=== PATIENT | male | born 1975 | race Caucasian/White ===

== ENCOUNTER 2019-10-01 20:47 | Inpatient (IN) ==
[2019-10-01 21:27] LABS: URINE SOURCE CLEAN CATCH
[2019-10-01 21:31] LABS: BASO# 0.02 X1000 (0.0-0.2); BASO% 0.2 % (0.0-0.8); EOS# 0.04 X1000 (0.0-0.7); EOS% 0.5 % (0.0-10.0); HEMATOCRIT 44.7 % (42.0-52.0); HEMOGLOBIN 15.2 g/dL (14.0-18.0); IMM GRAN# 0.03 X1000 (0.0-0.04); IMM GRAN% 0.4 % (0.0-0.5); LYMPH# 1.18 X1000 (1.2-3.4); LYMPH% 13.9 % (20.5-51.1); MCH 28.1 PG (27-31); MCV 82.6 FL (81-99); MONO# 0.45 X1000 (0.11-0.59); MONO% 5.3 % (1.7-9.3); NEUT# 6.78 X1000 (1.4-6.5); NEUT% 79.7 % (42.2-75.2); PLT 166 X1000 (130-400); RBC 5.41 XMIL (4.7-6.1); RDW 13.6 % (11.5-14.5)
[2019-10-01 21:33] LABS: BE -0.2 mmoll (-2.0-2.0); BLOOD TYPE VENOUS; HCO3-(ACT) 24.7 mmoll (22-27); PCO2(98.6) 41 mmHg (40-60); PO2(98.6) 76 mmHg (30-55); SAMPLE BLOOD; SAO2 97.4 % (40.0-85.0); pH(98.6) 7.39 (7.32-7.43)
[2019-10-01 21:35] LABS: BILIRUBIN URINE NEGATIVE (NEGATIVE); BLOOD URINE NEGATIVE (NEGATIVE); COLOR YELLOW; GLUCOSE URINE >1000 mg/dL (NEGATIVE); KETONE URINE TRACE mg/dL (NEGATIVE); LEUKOCYTES URINE NEGATIVE (NEGATIVE); NITRITE URINE NEGATIVE (NEGATIVE); PROTEIN URINE TRACE mg/dL (NEGATIVE); SP GRAVITY URINE 1.034; TURBIDITY URINE CLEAR (CLEAR); UROBILINOGEN URINE NORMAL (NORMAL)
[2019-10-01 21:37] LABS: UR EPITHELIAL CELLS <10 /HPF (<10); URINE BACTERIA NEGATIVE /HPF; URINE RBC <10 /HPF (<10); URINE WBC <10 /HPF (<10)
[2019-10-01 21:40] LABS: ACETONE SERUM NEGATIVE (NEGATIVE)
[2019-10-01 21:51] LABS: AGAP 15; ALB/GLOB RATIO 2.2; ALBUMIN 4.4 g/dL (3.5-5.0); ALKALINE PHOSPHATASE 88 U/L (32-122); AMYLASE 28 U/L (20-200); BUN 14 mg/dL (8-22); CALCIUM 9.6 mg/dL (8.8-10.2); CHLORIDE 98 mmol/L (98-107); CK PROFILE 114 U/L (24-204); COSMO 287; CREATININE 0.8 mg/dL (0.7-1.2); ESTIMATED GFR > 60; GLUCOSE 291 mg/dL (70-104); GOT 13 U/L (10-34); GPT 25 U/L (10-44); LIPASE 15 U/L (13-60); POTASSIUM 4.3 mmol/L (3.5-5.1); SODIUM 138 mmol/L (136-145); TCO2 25 mmol/L (25-35); TOTAL BILIRUBIN 0.44 mg/dL (0.20-1.00); TOTAL PROTEIN 6.4 g/dL (6.3-8.3)
[2019-10-01] MEDS ORDERED: G.I. COCKTAIL PO ONE (22:13)
[2019-10-01] MEDS ORDERED: PROTONIX PO ONE (22:13)
[2019-10-01] MEDS ORDERED: NS 1,000 ML IV ONE (22:17)
[2019-10-01] MEDS ORDERED: ZOFRAN IV ONE (23:42)
[2019-10-01] MEDS ORDERED: MORPHINE IV ONE (23:42)
--- NOTE | 2019-10-01 23:57 | EKG Report ---
Test Performed on : 10/01/2019 10:26:00 PM Test Reason : diabetic, epigastric pain Blood Pressure : / mmHG Vent. Rate : 062 BPM Atrial Rate : 062 BPM P-R Int : 142 ms QRS Dur : 086 ms QT Int : 402 ms P-R-T Axes : 022 049 039 degrees QTc Int : 408 ms Normal sinus rhythm. Normal ECG No previous ECGs available Unconfirmed Result
--- NOTE | 2019-10-02 01:33 | PROVIDER DOCUMENTATION ---
This chart was entered by Chyna Moralez Scribe, acting as scribe for Hang Schwarz MD. HPI-General Adult - General Chief Complaint: Abdominal Pain Stated Complaint: Epigastric Pain Time Seen by Provider: 10/01/19 21:25 Source: patient Allergies/Adverse Reactions: Patient Allergies Allergy/AdvReac Type Severity Reaction Status Date / Time No Known Allergies Allergy Verified 10/01/19 21:07 - History of Present Illness -Gen Adult Nature of Presenting Problems: 44yom presents to ED cc epigastric pain that is dull but gets sharp when he lays down and some nausea. Pt denies V/F/CP. Pt reports he has DM but has had no meds in 1yr. Pt is nontoxic in appearance upon exam. Location of Pain/Injury: reports: abdomen (epigastric) Pain Radiation: reports: no radiation Quality of Pain: reports: dull, sharp Severity: reports: mild Onset/Duration: reports: this morning Timing: reports: still present Context/Activities at Onset: reports: light activity Modifying Factors: worse with: lying down Associated Symptoms: reports: nausea Similar Symptoms Previously?: No Recently seen or treated by another doctor?: No Review of Systems - Adult - REVIEW OF SYSTEMS - ADULT Constitutional: reports: see HPI. denies: chills, fever, fatique Eyes: reports: no symptoms reported Ears, Nose, Mouth & Throat: reports: no symptoms reported Cardiovascular: reports: see HPI. denies: chest pain Respiratory: reports: no symptoms reported Gastrointestinal: reports: see HPI, abdominal pain (epigastric), nausea. denies: diarrhea, vomiting Genitourinary: reports: no symptoms reported Musculoskeletal: reports: no symptoms reported Integumentary: reports: no symptoms reported Neurological: reports: no symptoms reported Psychiatric: reports: no symptoms reported Endocrine: reports: no symptoms reported Hematologic/Lymphatic: reports: no symptoms reported Allergic/Immunologic: reports: no symptoms reported All Other Systems: Reviewed and Negative Past History - Adult - PAST MEDICAL HISTORY-ADULT Review of Records: reports: Nursing Assessment Review, Medications Reviewed, Social history reviewed & non-contributory. Major Childhood Illnesses: reports: denies history Cardiovascular: reports: denies history Respiratory: reports: denies history Gastrointestinal: reports: denies history Obstetrical/Gynecological: reports: denies history Genitourinary: reports: denies history Musculoskeletal: reports: denies history Neurological: reports: denies history Endocrine/Immune: reports: denies history Other Conditions: reports: denies history - IMMUNIZATION STATUS Childhood Immunizations: See Nurse Assessment Flu Vaccine: See Nurse Assessment - FAMILY HISTORY Family History: reviewed, not pertinent - SOCIAL HISTORY Smoking: denies Substance Use: none/never Alcohol Use Frequency: never Physical Exam-General - PHYSICAL EXAM-ADULT Initial Vital Signs Reviewed: Yes - CONSTITUTIONAL General Appearance: appears well, alert, no apparent distress. negative: anxious, combative - EYES Eyes: PERRL/EOMI, pink conjunctivae. negative: photophobia - HEAD, EARS, NOSE, MOUTH & THROAT HENMT: normocephalic/atraumatic, moist mucous membranes. negative: angioedema - NECK Neck: normal inspection - RESPIRATORY Respiratory: chest non-tender, lungs clear, normal breath sounds. negative: rhonchi, stridor - CARDIOVASCULAR Cardiovascular: normal peripheral pulses, regular rate, rhythm, no edema. negative: bradycardia, tachycardia - GASTROINTESTINAL (ABDOMEN) Abdominal Exam: normal bowel sounds, soft, no organomegaly, tenderness (mild;epigastric). negative: rebound - MUSCULOSKELETAL Back Exam: normal inspection, no CVA tenderness, no vertebral tenderness Extremity: normal inspection, normal capillary refill. negative: deformity - SKIN Integumentary: normal color. negative: diaphoresis, jaundice - PSYCHIATRIC Psych/Mental Status: normal mood/affect, oriented x 3. negative: anxious, disheveled Progress - PLAN OF CARE/RESULTS Progress/Plan/Lab Results: Vital Signs - 8 hr 10/01/19 20:54 Temperature 98.1 F Pulse Rate 66 Respiratory Rate 18 Blood Pressure 157/99 O2 Sat by Pulse Oximetry 95 Laboratory Results - last 24 hr 10/01/19 21:07 POC Glucose 251 H Orders Category Date Time Status Saline Loc DIRECTED Care 10/01/19 21:06 Active NPO Diet 10/01/19 21:06 Active ACETONE SERUM [CHEM] Stat Lab 10/01/19 20:56 Received AMYLASE [CHEM] Stat Lab 10/01/19 20:56 Received CBC WITH ELECTRONIC DIFF [HEME] Stat Lab 10/01/19 20:56 Results CK PROFILE [SP CHEM] Stat Lab 10/01/19 20:56 Received COMPREHENSIVE METABOLIC PANEL [CHEM] Stat Lab 10/01/19 20:56 Received LIPASE [CHEM] Stat Lab 10/01/19 20:56 Received TROPONIN T Stat Lab 10/01/19 20:56 Received URINALYSIS W/POSS RFLX CULT [URINALYSIS] Stat Lab 10/01/19 21:23 Ordered VBG [VENOUS BLOOD GAS] [RESP] Routine Lab 10/01/19 21:10 Ordered EKG [EKG] Stat Ther 10/01/19 21:06 Ordered Result Diagrams: 10/01/19 20:56 10/01/19 20:56 - REASSESSMENT Reassessment #1 Time Reassessed: 22:15 Status: unchanged (still epigastric pain, labs has been unremarkable besides elevated glucose. Will give GI cocktail, protonix . Order 2nd EKG and trops) Reassessment #2 Time Reassessed: 23:44 Status: worsening (reports worsening of epigastric pain after GI cocktail and protonix. Will treat with morphine, zofran and order a CT) - EKG 1 Time of EKG reading by physician:: 22:28 EKG Read and Signed by:: Albaro Sanchez EKG Interpretation (*Must complete 3 of following elements*): Normal Rate: 60 Rhythm: NSR QRS: normal ST Wave: normal - CT/MRI 1 CT Study: Abdomen Impression: See EMR Report (1.Small bowel obstruction with transition point suspected in the mid to distal jejunum. 2.No ascites or free air.) - CONSULTS/PCP/HOSPITALIST Notification #1 *Consult/PCP/Hospitalist*: Dr. Tamez Time Discussed: 00:55 Consult Disposition: other (will see after pt is admitted by hospitalist) #2 Consult: Dr. Thakur Time Discussed: 00:57 Consult Disposition: Admit (accepted pt) Departure - Departure Date of Disposition Decision: 10/01/19 Time of Disposition Decision: 23:40 DIAGNOSIS: Small bowel obstruction Diabetes Qualifiers: Diabetes mellitus type: type 2 Diabetes mellitus usp insulin use: without usp use Diabetes mellitus complication status: with hyperglycemia Qualified Code(s): E11.65 - Type 2 diabetes mellitus with hyperglycemia DIAGNOSIS: (Ruled Out): GERD (gastroesophageal reflux disease) Disposition: ADMITTED INPATIENT 09 Certified Medical Emergency: Emergent Condition: Stable Additional Instructions: ED Follow Up Instructions: You have been treated by a care provider in the Emergency Department. These instructions are being provided to you so you can have an understanding of how to care for yourself upon discharge. Upon discharge from the Emergency De partment, you are responsible for making arrangements for follow-up care by a physician of your choice. Take all prescribed medications as directed. Return to the Emergency Department immediately for any new or worsening symptoms. You may call the Physician Referral phone number at [phone] to obtain a list of Physicians who are taking new patients. Referrals and Follow-Ups: None,PCP [Primary Care Provider] - - Critical Care Note This patient required my direct & personal management of CC.: No Attestation - Physician/ ДМИТРИЙ Attestation Patient care was provided by Advanced Practice Provider:: No The physician spent face to face time with patient:: Yes Advanced Practice Provider documentation review:: Supervising physician onsite and consulted in the evaluation and care of this patient. The physician did have a face to face encounter with the patient. - HEART Score HEART Score: History: Slightly Suspicious HEART Score: ECG: Normal HEART Score: Age: < or = 45 Years HEART Score: Risk Factors for Atherosclerotic Disease: 1 or 2 Risk Factors HEART Score: Troponin: < or = Normal Limit Total HEART Score:: 1 This chart was documented by the indicated scribe, (Chyna Moralez, Pako) and accurately reflects the services I performed and decisions made by me, Hang Schwarz MD, as attested by the provider's signature.
[2019-10-02] MEDS ORDERED: MORPHINE IV ONE (01:38)
[2019-10-02] MEDS: NS 1,000 ML IV SCH ×3 (02:40→22:50)
--- NOTE | 2019-10-02 05:17 | HISTORY AND PHYSICAL ---
PRIMARY CARE PHYSICIAN: None. CHIEF COMPLAINT: Abdominal pain x2 days. HISTORY OF PRESENTING ILLNESS: A 44-year-old male with a history of diabetes mellitus type 2 presented to the emergency department with 2 days history of having abdominal pain. He states it was cramping and he was somewhat nauseated. The patient was evaluated in the emergency department and he had imaging done which did show a small bowel obstruction. His case was discussed with General Surgery who recommended admission for further management. At the time of my examination, patient denied any headache, fever, chills, chest pain, shortness of breath, hemoptysis or any weight changes, but complained of nausea and abdominal pain. PAST MEDICAL HISTORY: Include diabetes mellitus type 2. PAST SURGICAL HISTORY: None. ALLERGIES: No known drug allergies. CURRENT MEDICATIONS: He is not taking any. SOCIAL HISTORY: No history of smoking, alcohol or illicit drug use. FAMILY HISTORY: No history of coronary artery disease. REVIEW OF SYSTEMS: Fourteen point review of system as listed in HPI. Other systems negative. PHYSICAL EXAMINATION: GENERAL: Cooperative, friendly male. He is resting more comfortably now. VITAL SIGNS: Temperature 98.1 degrees, pulse 66, respiration 18, blood pressure 157/99. HEENT: Atraumatic, normocephalic. Extraocular movements intact. PERRLA. NECK: No masses. CHEST: Clear to auscultation. CARDIOVASCULAR: Regular rate and rhythm. ABDOMEN: Soft. Diffuse tenderness. EXTREMITIES: No edema. NEUROLOGIC: He is awake, alert, oriented x3. GENITOURINARY: No bladder distention. SKIN: Warm. LABORATORIES AND STUDIES: WBCs 8.50, hemoglobin 15.2, hematocrit 44.7, platelets 166,000. Sodium 138, potassium 4.3, chloride 98, CO2 is 25, BUN is 14, creatinine 0.8, glucose is 291. ASSESSMENT: This is a 44-year-old male with a history of diabetes mellitus type 2 who presented to emergency department with several days history of having abdominal pain. He was evaluated the emergency department. He had imaging done which did show a small bowel obstruction. Subsequently, he will require admission for further management. 1. Small bowel obstruction. 2. Diabetes mellitus type 2 with hyperglycemia. PLAN: 1. We will admit patient to medical floor with telemetry. 2. We will keep patient NPO. Continue with IV fluids, antiemetics, pain control. 3. We will monitor blood glucose. Put patient on sliding scale insulin regimen. 4. We will put patient on DVT prophylaxis with SCDs. 5. Please note that General Surgery was already consulted. 6. We will continue to follow, reassess and make further recommendation based on patient's clinical course. cc: Eloy Thakur MD
[2019-10-02] MEDS: HUMULIN R SUBQ SCH ×4 (06:34→21:06)
--- NOTE | 2019-10-02 07:16 | Diag Imaging Result Doc PS360 ---
EXAM: CT ABD/PELVIS W/IV CONT ONLY 10/01/2019 HISTORY: persistent epigastric pain TECHNIQUE: This exam was performed using automated exposure control, adjustment of mA or kV according to patient size, and/or use of iterative reconstruction technique. COMMENT: There are no previous studies available for comparison. There are platelike opacities in both lower lobes consistent with atelectasis. There is some atelectasis in the inferior lingula as well. There is a granuloma in the right middle lobe. The liver is slightly hypodense suggesting fatty change. The stomach is distended with gas fluid and some solid contents. There are no apparent gallstones. The spleen is slightly enlarged measuring 14.5 cm in AP dimension. The adrenal glands are nonenlarged. There is no evidence of hydronephrosis. There is a small cortical cyst in the upper pole of the left kidney. The pancreas is unremarkable. There is some stool in the colon without evidence of dilatation. There is dilatation of the proximal small bowel with a transitional zone in the midline around image 102. There is some fecalization of small bowel contents proximal to this. There is edema in the mesenteric fat adjacent to the more distended loops of jejunum. The aorta is not distended. There is no evidence of significant adenopathy. There is no evidence of appendicitis. Pelvis: There is no evidence of free fluid or significant adenopathy or masses. The urinary bladder is slightly distended. The regional skeleton appears to be intact. IMPRESSION: Partial small bowel obstruction due to stricture or adhesion in the distal jejunum. Bibasilar subsegmental atelectasis. Mild hepatic steatosis. Electronically signed by Bob Weldon 10/02/2019 7:13 AM
[2019-10-02] MEDS: MORPHINE IV PRN ×3 (10:52→23:41)
[2019-10-02] MEDS: ZOFRAN IV PRN ×3 (10:52→23:40)
--- NOTE | 2019-10-02 23:12 | GENERAL SURGERY CONSULTATION ---
DATE: 10/02/2019 REQUESTING PHYSICIAN: Hospitalist. REASON FOR CONSULTATION: Bowel obstruction. HISTORY OF PRESENT ILLNESS: A 44-year-old gentleman with history of diabetes mellitus type 2, who presented to emergency department with 2-day history of abdominal pain. He states it is cramping. He has had some nausea. He went to the emergency department, had a CT scan that showed potential for bowel obstruction. He is already feeling better this morning after staying overnight, and not having as much abdominal pain. He said he passed gas about an hour ago. He has never had anything like this before. PAST MEDICAL HISTORY: Includes diabetes mellitus type 2. PAST SURGICAL HISTORY: None. ALLERGIES: None. HOME MEDICATION: In the MAR and reviewed. SOCIAL HISTORY: No alcohol, tobacco, or illicit drugs. FAMILY HISTORY: Reviewed with the patient and noncontributory. REVIEW OF SYSTEMS: A full 14-systems reviewed and negative, except as specified in HPI. PHYSICAL EXAMINATION: Vital Signs: Patient is currently afebrile. Vital signs are stable. General: No acute distress. HEENT: Normocephalic, atraumatic. Pupils equal, round, reactive to light. Mucous membranes moist. Oropharynx benign. Neck: Supple. Trachea midline. Cardiovascular: Regular rate and rhythm. Lungs: Grossly clear. Abdomen: Soft, nontender, nondistended. Extremities: Moves all extremities. Neurologic: Grossly intact. Skin: No signs of jaundice. Vascular: All extremities perfused. LABORATORY AND DIAGNOSTIC DATA: Laboratory reviewed. White blood cell count is normal. Hematocrit is normal. Platelet count is normal. Remainder of labs reviewed. CT scan independently reviewed and radiology report reviewed and noted above. ASSESSMENT/PLAN: A 44-year-old gentleman with a bowel obstruction. Bowel obstruction: At this time clinically, I think he is improving, but will follow up with a.m. abdominal film. If he still shows signs of obstruction, may consider small bowel follow-through over the weekend. If not, we will continue to follow him and may consider outpatient GI workup including colonoscopy. At this time, he does not have any peritoneal signs, does not seem septic, so I do not think we need to do anything surgically at this moment, unless he fails to improve. We will continue resuscitation. I appreciate the consult. cc: Rome Wilson MD
--- NOTE | 2019-10-03 00:41 | CONSULTATION ---
DATE OF CONSULTATION: 10/02/2019 HISTORY OF PRESENT ILLNESS: Mr. Rome Campo is a 44-year-old overweight white male diabetic, who presented to our emergency department last night with epigastric pain. This pain evidently started 12 hours prior to his presentation. He described it mostly in his epigastrium. He had some nausea but very little vomiting. He was evaluated in the emergency department by our ED physicians, which included a CT scan of his abdomen and pelvis which suggested a possible small- bowel obstruction. We were asked to evaluate him. He has been hospitalized on the hospitalist service. He has no NG tube, and states that he feels better this morning. PAST MEDICAL HISTORY: Diabetes, which he tries to control mostly with diet. He does not see a doctor regularly. He is overweight. He has never had abdominal surgery. He has had incision and drainage of a cutaneous abscess in the past. He has also had what appears to be a laceration to his chin. Never hospitalized for abdominal complaints. MEDICATIONS: None. ALLERGIES: None. SOCIAL HISTORY: He works at [employer] and lives with his parents in [place]. He does not smoke. FAMILY HISTORY: Reviewed and not pertinent. REVIEW OF SYSTEMS: A 14-point review of systems was reviewed, and except for the history of present illness was essentially negative. PHYSICAL EXAMINATION: On exam, Mr. Campo is an overweight, middle-aged white male. He is in no acute distress. He wears glasses. He has telemetry on. He has no NG tube. He does not appear to be nauseated. He is awake, cooperative, without focal deficit. His temperature is 98.1 degrees, pulse is 66, blood pressure 157/99, O2 saturation 95%. He has no jaundice. No oral lesions. No cervical or supraclavicular lymphadenopathy. His heart has regular rate. Lungs are clear to auscultation and percussion bilaterally. His abdomen is mostly soft. It is only mildly tender, epigastrium, left side of abdomen. It is not tightly distended. He has no previous scars on his abdomen. No evidence of hernia. Rectal exam was not performed. He does have palpable femoral pulses. He has no significant peripheral edema. DIAGNOSTIC DATA: CT scan was reviewed, and suggests possible small-bowel obstruction with a transition point mid to distal jejunum. There is no ascites or free air. LABORATORY DATA: His white blood cell count was normal. Hematocrit was 45%. Electrolytes are within normal limits, except his glucose is 291. IMPRESSION: Epigastric pain and some nausea. His symptoms have improved since admission. He states that he has had flatus since being admitted, but no bowel movement. He rates his pain as 0/10 to 1/10. He is receiving intravenous fluids and resting comfortably. PLAN: I would begin him on diabetic fluids. As long as he tolerates that, advance his diet. Dr. Wilson is covering for our group over the weekend. cc: Ewelina Tamez MD
[2019-10-03] MEDS: ZOFRAN IV PRN (06:31)
[2019-10-03] MEDS: HUMULIN R SUBQ SCH ×4 (06:31→21:46)
[2019-10-03] MEDS: MORPHINE IV PRN (06:31)
[2019-10-03 07:26] LABS: BASO# 0.03 X1000 (0.0-0.2); BASO% 0.4 % (0.0-0.8); EOS# 0.11 X1000 (0.0-0.7); EOS% 1.4 % (0.0-10.0); HEMATOCRIT 45.9 % (42.0-52.0); HEMOGLOBIN 14.9 g/dL (14.0-18.0); IMM GRAN# 0.03 X1000 (0.0-0.04); IMM GRAN% 0.4 % (0.0-0.5); LYMPH# 1.28 X1000 (1.2-3.4); LYMPH% 16.7 % (20.5-51.1); MCH 27.5 PG (27-31); MCHC 32.5 g/dL (33-37); MCV 84.7 FL (81-99); MONO# 0.56 X1000 (0.11-0.59); MONO% 7.3 % (1.7-9.3); MPV 11.3 FL (7.4-10.4); NEUT# 5.67 X1000 (1.4-6.5); NEUT% 73.8 % (42.2-75.2); PLT 153 X1000 (130-400); RBC 5.42 XMIL (4.7-6.1); RDW 13.9 % (11.5-14.5); WBC 7.68 X1000 (4.8-10.8)
[2019-10-03 07:37] LABS: HEMOGLOBIN A1C 10.3 % (4.8-6.0)
[2019-10-03 07:46] LABS: AGAP 12; BUN 8 mg/dL (8-22); CHLORIDE 101 mmol/L (98-107); COSMO 283; CREATININE 0.8 mg/dL (0.7-1.2); ESTIMATED GFR > 60; GLUCOSE 197 mg/dL (70-104); POTASSIUM 4.1 mmol/L (3.5-5.1); SODIUM 140 mmol/L (136-145); TCO2 27 mmol/L (25-35)
--- NOTE | 2019-10-03 09:40 | Diag Imaging Result Doc PS360 ---
EXAM: ABDOMEN FLAT/UPRIGHT HISTORY: pain TECHNIQUE: Three views COMPARISON: None. FINDINGS: Single small bowel loop mildly distended in the midabdomen. There is stool in the colon. No organomegaly. No foreign body. The several pelvic phleboliths. IMPRESSION: Nonspecific bowel gas pattern. Electronically signed by Roger Camarena 10/03/2019 9:37 AM
[2019-10-03] MEDS: TYLENOL PO PRN (14:17)
--- NOTE | 2019-10-03 20:11 | GENERAL SURGERY PROGRESS NOTE ---
DATE: 10/03/2019 SUBJECTIVE: Patient seems to be doing okay. He tolerated his clear liquids. He says he is passing gas, and not sick to his stomach. OBJECTIVE: Vital Signs: Patient is currently afebrile. His vital signs are stable. General: No acute distress. HEENT: Normocephalic, atraumatic. Pupils equal, round, reactive to light. Mucous membranes moist. Oropharynx benign. Neck: Supple. Trachea midline. Cardiovascular: Regular rate and rhythm. Lungs: Grossly clear. Abdomen: Soft, nontender, nondistended. Extremities: Moves all extremities. Neurologic: Grossly intact. Skin: No signs of jaundice. Vascular: All extremities perfused. LABORATORY: Reviewed from this morning. ASSESSMENT/PLAN: A 44-year-old gentleman with resolving small bowel obstruction. Small bowel obstruction. At this time, it seems to be clinically improving. We will advance him to a full liquid diet and see how he does. cc: Rome Wilson MD
--- NOTE | 2019-10-03 21:06 | PROGRESS NOTE ---
DATE: 10/03/2019 SUBJECTIVE: The patient reports passing gas. This patient has been started on clear liquids, but no bowel movements yet. OBJECTIVE: Vital Signs: Temperature 98.1 degrees, heart rate 91, respiratory rate 16, blood pressure 140/84, O2 saturation 95% on room air. General: This is a 44-year-old, male, lying in bed, in no acute distress. Cardiovascular: S1, S2 heard. No murmurs, gallops, or rubs. Regular rate and rhythm. Respiratory: Clear bilaterally to auscultation. No work of breathing or using accessory muscles. Abdomen: Soft, nontender to palpation. Bowel sounds present. No organomegaly. Extremities: No clubbing, cyanosis, or edema. Peripheral pulses present in both legs. Neurologic: Patient alert and oriented x3. Moves 4 extremities. LABORATORY DATA: Reviewed. ASSESSMENT AND PLAN: 1. Partial small bowel obstruction. The patient reports passing gas since yesterday. The x-ray from today from the abdomen showed nonspecific bowel gas pattern. I think at this point, we will continue on a clear liquid diet as recommended by General Surgery. I think if this patient tolerates diet and starts having bowel movements, he can be discharged tomorrow. 2. Diabetes mellitus type 2. We will continue with sliding scale insulin and Accu-Chek before meals and also at bedtime. cc: Zack Cruz MD
[2019-10-04] MEDS: TYLENOL PO PRN (06:50)
[2019-10-04] MEDS: HUMULIN R SUBQ SCH ×2 (06:50→11:01)
[2019-10-04 07:36] LABS: BASO# 0.02 X1000 (0.0-0.2); BASO% 0.4 % (0.0-0.8); EOS# 0.18 X1000 (0.0-0.7); EOS% 3.5 % (0.0-10.0); HEMATOCRIT 44.9 % (42.0-52.0); HEMOGLOBIN 14.8 g/dL (14.0-18.0); IMM GRAN# 0.02 X1000 (0.0-0.04); IMM GRAN% 0.4 % (0.0-0.5); LYMPH# 1.36 X1000 (1.2-3.4); LYMPH% 26.4 % (20.5-51.1); MCH 27.9 PG (27-31); MCV 84.7 FL (81-99); MONO# 0.36 X1000 (0.11-0.59); MPV 10.8 FL (7.4-10.4); NEUT# 3.22 X1000 (1.4-6.5); NEUT% 62.3 % (42.2-75.2); PLT 139 X1000 (130-400); RDW 13.8 % (11.5-14.5); WBC 5.16 X1000 (4.8-10.8)
[2019-10-04 07:43] LABS: AGAP 11; BUN 7 mg/dL (8-22); CALCIUM 9.6 mg/dL (8.8-10.2); CHLORIDE 98 mmol/L (98-107); COSMO 276; CREATININE 0.7 mg/dL (0.7-1.2); ESTIMATED GFR > 60; GLUCOSE 167 mg/dL (70-104); POTASSIUM 4.3 mmol/L (3.5-5.1); SODIUM 137 mmol/L (136-145); TCO2 28 mmol/L (25-35)
--- NOTE | 2019-10-04 10:23 | GENERAL SURGERY PROGRESS NOTE ---
DATE: 10/04/2019 SUBJECTIVE: Patient seems to be doing okay. He is tolerating his full liquid diet. He has had bowel movements. OBJECTIVE: Vital Signs: The patient is currently afebrile. His vital signs are stable. General Examination: No acute distress. HEENT: Normocephalic, atraumatic. Pupils equal, round, react to light. Mucous membranes moist. Oropharynx benign. Neck: Supple. Trachea midline. Cardiovascular: Regular rate and rhythm. Lungs: Grossly clear. Abdomen: Soft, nontender, nondistended. Extremities: Moves all extremities. Neurologic: Grossly intact. Skin: No signs of jaundice. Vascular: All extremities perfused. Laboratory: None. ASSESSMENT AND PLAN: A 44-year-old gentleman with resolving small bowel obstruction. Resolving small bowel obstruction. At this time, we will advance him to a regular diet. I think he can probably be discharged home today. I would like to see him back in the office, may even consider outpatient colonoscopy given his history. At this time, I think it is safe to be discharged from a surgical point of view. cc: Rome Wilson MD
[2019-10-04 12:16] VITALS: BP 141/86
--- NOTE | 2019-10-04 15:59 | DISCHARGE SUMMARY ---
ADMISSION DATE: 10/02/2019 DISCHARGE DATE: 10/04/2019 DISCHARGE DIAGNOSIS: 1. Small bowel obstruction resolved. 2. Diabetes mellitus type 2 . CONSULTATIONS: Dr. Wilson from General Surgery. PROCEDURES: 1. Abdomen and pelvis CT showed partial small bowel obstruction due to stricture or adhesions in the distal jejunum, mild hepatic steatosis. 2. Abdomen x-ray done 1 day before discharge showed nonspecific bowel gas pattern. HOSPITAL COURSE: This is a 44-year-old male who presented to emergency department complaining of 2-day history abdominal pain, ER evaluation showed small bowel obstruction so this patient was admitted for further evaluation and treatment. Patient was offer NG tube feedings but he refused, we provided IV fluids and pain medication. He report spontaneously starting passing gases. Patient start having bowel movements so patient was cleared for surgery. Patient is going to be seen by them in a week. DISCHARGE PHYSICAL EXAMINATION: Temperature 98.3 degrees, heart rate 69, respiratory 16, blood pressure 141/86, O2 saturation 99% on room air. General: This is a 44-year-old male lying in bed in no acute distress. Cardiovascular: S1, S2 heard. No murmurs, gallops, rubs, regular rate and rhythm. Respiratory: Clear bilaterally to auscultation. No work of breathing or using accessory muscles. Abdomen: Soft, nontender to palpation. Bowel sounds present. No organomegaly. Extremities: No clubbing, cyanosis, or edema. Peripheral pulses present in both legs. Neurologic: The patient is alert, oriented x3, moves 4 extremities. DISCHARGE DISPOSITION: Home to self-care. MEDICATIONS: None. FOLLOWUP: With Dr. Wilson in a week in his office. cc: Zack Cruz MD [facility]
== END 2019-10-04 15:18 | disposition home or self-care (01) | DRG 390 ==
LOC: SUPCPDRO → ED 20:47 → 3N 10-02 02:09 → SUATTDRO 10-02 02:09
PROVIDERS: ATTEND Internal Medicine

== ENCOUNTER 2019-10-05 23:01 | Inpatient (IN) ==
[2019-10-05 23:29] LABS: BASO# 0.02 X1000 (0.0-0.2); BASO% 0.3 % (0.0-0.8); EOS# 0.12 X1000 (0.0-0.7); HEMATOCRIT 42.6 % (42.0-52.0); HEMOGLOBIN 14.1 g/dL (14.0-18.0); LYMPH# 1.14 X1000 (1.2-3.4); LYMPH% 18.7 % (20.5-51.1); MCH 27.8 PG (27-31); MCHC 33.1 g/dL (33-37); MONO# 0.41 X1000 (0.11-0.59); MONO% 6.7 % (1.7-9.3); MPV 10.8 FL (7.4-10.4); NEUT% 72.3 % (42.2-75.2); PLT 158 X1000 (130-400); RBC 5.07 XMIL (4.7-6.1); RDW 13.8 % (11.5-14.5); WBC 6.09 X1000 (4.8-10.8)
[2019-10-05 23:52] LABS: AGAP 10; ALB/GLOB RATIO 1.7; ALKALINE PHOSPHATASE 84 U/L (32-122); AMYLASE 16 U/L (20-200); BUN 11 mg/dL (8-22); CALCIUM 9.6 mg/dL (8.8-10.2); CHLORIDE 100 mmol/L (98-107); COSMO 288; CREATININE 0.9 mg/dL (0.7-1.2); ESTIMATED GFR > 60; GLUCOSE 305 mg/dL (70-104); GOT 12 U/L (10-34); GPT 20 U/L (10-44); LIPASE 13 U/L (13-60); POTASSIUM 4.2 mmol/L (3.5-5.1); SODIUM 139 mmol/L (136-145); TCO2 29 mmol/L (25-35); TOTAL BILIRUBIN 0.41 mg/dL (0.20-1.00); TOTAL PROTEIN 6.4 g/dL (6.3-8.3)
[2019-10-06 00:06] LABS: URINE SOURCE CLEAN CATCH
[2019-10-06 00:47] LABS: BILIRUBIN URINE NEGATIVE (NEGATIVE); BLOOD URINE NEGATIVE (NEGATIVE); COLOR YELLOW; GLUCOSE URINE >1000 mg/dL (NEGATIVE); KETONE URINE NEGATIVE (NEGATIVE); LEUKOCYTES URINE NEGATIVE (NEGATIVE); NITRITE URINE NEGATIVE (NEGATIVE); PROTEIN URINE NEGATIVE (NEGATIVE); SP GRAVITY URINE 1.028; TURBIDITY URINE CLEAR (CLEAR); UR EPITHELIAL CELLS <10 /HPF (<10); URINE BACTERIA NEGATIVE /HPF; URINE RBC <10 /HPF (<10); URINE WBC <10 /HPF (<10); UROBILINOGEN URINE NORMAL (NORMAL)
[2019-10-06 02:28] LABS: BE -4.5 mmoll (-2.0-2.0); BLOOD TYPE VENOUS; HCO3-(ACT) 20.8 mmoll (22-27); PCO2(98.6) 62 mmHg (40-60); PO2(98.6) 48 mmHg (30-55); SAMPLE BLOOD; SAO2 81.7 % (40.0-85.0); pH(98.6) 7.21 (7.32-7.43)
--- NOTE | 2019-10-06 06:55 | HISTORY AND PHYSICAL ---
PRIMARY CARE PROVIDER: None. REASON FOR ADMISSION: Right upper quadrant discomfort last night. HISTORY OF PRESENT ILLNESS: Mr. Rome Singh is a 44-year-old man who was recently discharged 2 days ago for what appears to be a small bowel obstruction. He also has a history of type 2 diabetes. During his last admission, he was managed conservatively and small bowel obstruction resolved. Comes in today saying that yesterday was feeling sick to his stomach, but no vomiting. He is having copious amounts of loose stools, which has nonbloody further over the last 12 hours, approximately 10. He describes his pain as a dull achy pain in the right upper quadrant area which comes and goes, worse when he rolls on his side or moves his trunk. No fever, no chills. No genitourinary complaints. No cardiorespiratory complaints. No close contacts with GI issues. No polyuria or polydipsia. REVIEW OF SYSTEMS: Twelve system review was done. Positive findings per HPI. ALLERGIES: No known drug allergies. MEDICATIONS: None. SOCIAL HISTORY: Does not smoke, drink, or use drugs. FAMILY HISTORY: Notable for ovarian cancer, uterine cancer, diabetes, but no heart disease, no bowel disorder. LABORATORY DATA: White count 6000, hemoglobin and hematocrit 14 and 42, platelets 158,000. Normal differential. BUN 11, creatinine 0.9 glucose is 305. Amylase and lipase are normal. Urinalysis greater or 1000 glucose. IMAGING: Chest x-ray showed numerous air-fluid levels. PHYSICAL EXAMINATION: VITAL SIGNS: Blood pressure 124/83, heart rate 94, respirations 18, temperature is 98.2 degrees, 100% on room air. GENERAL: Morbidly obese, middle-aged man not in acute distress. Alert and oriented to person and time with normal mood and affect. HEENT: Head is normocephalic, atraumatic. Eyes, MAXI, EOMI. Anicteric not pale. ENT exam is exam is grossly normal. NECK: Supple. No JVD or carotid bruit. No thyromegaly. NECK: Supple. No JVD or carotid bruit. No thyromegaly. CHEST: Clear when auscultated. Good air entry both lung tyson. CARDIOVASCULAR: First and 2nd sounds heard. No gallops, murmurs, rubs. Rhythm is regular. ABDOMEN: She is tender in the epigastric and right upper quadrant areas, but no rebound or guarding noted. The bowel sounds are actually normal. No mass or organomegaly noted. RECTAL: Deferred at this time. EXTREMITIES: No edema, clubbing or peripheral cyanosis. The patient has good distal pulse volumes. NEUROLOGIC: No gross focal deficits. SKIN: Intact. No breakdown, lesion, lesions, or erythema. MUSCULOSKELETAL: Grossly normal. ASSESSMENT: 1. Partial small-bowel obstruction versus diffuse enteritis. Consider Crohn disease. 2. Type 2 diabetes, uncontrolled. PLAN: Patient will be kept n.p.o. I am going to proceed to do a CT scan with oral contrast for 2 reasons to find actual transition point if this is truly an obstruction and outline if any clear- cut strictures, but also at the same time, we can do serial abdominal x-rays to monitor the transition of contrast. The patient has not had any vomiting, so this particular advantage of this was given the patient of contrast. Treat symptomatically otherwise. If similar findings are noted from before, then patient may end up requiring exploratory laparotomy. Sugars will be managed with Lantus and sliding scale. Patient will be resuscitated with IV fluids. My suspicion is that this patient at very worst will have a partial small-bowel obstruction. I am not convinced this is a complete obstruction due to the fact that he has he has had 8 to 10 loose stools prior to coming in. Surgery will be consulted to see patient also. cc: Haim Fernandes MD
--- NOTE | 2019-10-06 07:19 | Diag Imaging Result Doc PS360 ---
EXAM: FLAT/UPRIGHT ABD/1 VIEW CHEST 10/06/2019 HISTORY: abd pain TECHNIQUE: Flat and upright abdomen with PA chest COMMENT: There is gas and some stool in the colon without evidence of dilatation. There are multiple distended small bowel loops with thickened appearing mucosal folds. Multiple air-fluid levels are present. Compared to 10/03/2019 there is more gaseous dilatation of the small bowel loops but there was apparently previous mucosal fold thickening. There is no evidence of acute disease in the chest and no previous chest radiographs are available for comparison. IMPRESSION: Partial small bowel obstruction and/or enteritis. Electronically signed by Bob Weldon 10/06/2019 7:16 AM
[2019-10-06] MEDS ORDERED: MORPHINE IV PRN (08:16)
[2019-10-06] MEDS ORDERED: ZOFRAN IV PRN (08:16)
--- NOTE | 2019-10-06 08:34 | Diag Imaging Result Doc PS360 ---
EXAM: CT ABD/PELVIS W/PO AND IV CON INDICATION: recurrent SBO TECHNIQUE: This exam was performed using automated exposure control, adjustment of mA or kV according to patient size, and/or use of iterative reconstruction technique. COMPARISON: 10/02/2019 FINDINGS: There is mild left lower lobe subsegmental atelectasis. There is likely minimal hepatic steatosis, stable. The liver is grossly unremarkable, otherwise. The spleen is slightly prominent measuring up to 14.6 cm in axial length. It is stable. The pancreas and adrenal glands are unremarkable. There is a stable small left renal cyst. The kidneys are unremarkable, otherwise. The urinary bladder is unremarkable. There is uncomplicated sigmoid colonic diverticulosis. There is no evidence of appendicitis. There has been improvement of the small bowel distention that was seen on the previous study that indicated a partial small bowel obstruction. There are a few mildly distended loops of small bowel that persist. The distal small bowel is decompressed. The remainder of the GI tract is unchanged. No free abdominal gas or free fluid is identified. There is no evidence of acute osseous abnormality. IMPRESSION: 1.Interval improvement of the distention of small bowel seen on the previous study that indicated partial small bowel obstruction. 2.Otherwise, the abdomen and pelvis are essentially stable. Electronically signed by Bharath Goncalves 10/06/2019 8:32 AM
[2019-10-06] MEDS: HUMALOG SUBQ SCH ×3 (08:58→17:41)
[2019-10-06] MEDS: LOVENOX SUBQ SCH (10:58)
[2019-10-06] MEDS: POTASSIUM CHLORIDE 10 MEQ in NS 1,000 ML IV SCH ×5 (10:58→22:57)
[2019-10-06] MEDS: LANTUS INSULIN SUBQ SCH (10:59)
--- NOTE | 2019-10-06 11:08 | PROVIDER DOCUMENTATION ---
This chart was entered by Renee Goncalves Scribe, acting as scribe for Hang Schwarz MD. HPI-Abdominal Pain/GI Problem <Maxim Bains. - Last Filed: 10/06/19 05:26> - General Source: RN/MD - History of Present Illness-ABD Nature of Presenting Problems: pt is a 44 yom c/o epigastric pain dull and intermittent at 0530 while getting ready for work. pt was d/c from hospital 2 days ago for same. pt was dx w/SBO. pt sts pain resolved after BM. pt referred to Dr. Wilson for follow up. pt has no pcp, no rx. nonsmoker, no alcohol or drug use. no nv, cp or sob. pt live at home w/. Abdominal Pain Onset Location: reports: epigastric Pain Radiation: reports: no radiation Quality of Pain: reports: dull Severity in ED: reports: mild Onset/Duration: reports: this morning Timing: reports: intermittent Activities at Onset: reports: light activity Modifying Factors: improves with: nothing Associated Symptoms: reports: denies symptoms Last BM: unsure Similar Symptoms Previously?: Yes Recently seen or treated by another doctor?: Yes <Hang Schwarz - Last Filed: 10/06/19 11:07> - General Chief Complaint: Abdominal Pain Stated Complaint: RELEASED FROM HOSPITAL YESTERDAY/ABD PAIN Time Seen by Provider: 10/06/19 00:10 Allergies/Adverse Reactions: Patient Allergies Allergy/AdvReac Type Severity Reaction Status Date / Time No Known Allergies Allergy Verified 10/01/19 21:07 Review of Systems - Adult - REVIEW OF SYSTEMS - ADULT Constitutional: reports: no symptoms reported. denies: chills, fever, fatique Eyes: reports: no symptoms reported Ears, Nose, Mouth & Throat: reports: no symptoms reported Cardiovascular: reports: no symptoms reported. denies: chest pain, edema, palpitations Respiratory: reports: no symptoms reported. denies: shortness of breath, wheezing Gastrointestinal: reports: see HPI, abdominal pain (epigastric). denies: diarrhea, nausea, vomiting Genitourinary: reports: no symptoms reported Musculoskeletal: reports: no symptoms reported Integumentary: reports: no symptoms reported Neurological: reports: no symptoms reported Psychiatric: reports: no symptoms reported Endocrine: reports: no symptoms reported Hematologic/Lymphatic: reports: no symptoms reported Allergic/Immunologic: reports: no symptoms reported All Other Systems: Reviewed and Negative <Hang Schwarz - Last Filed: 10/06/19 11:07> Past History - Adult - PAST MEDICAL HISTORY-ADULT Review of Records: reports: Nursing Assessment Review, Medications Reviewed, Social history reviewed & non-contributory. Major Childhood Illnesses: reports: denies history Cardiovascular: reports: denies history Respiratory: reports: denies history Gastrointestinal: reports: denies history Obstetrical/Gynecological: reports: denies history Genitourinary: reports: denies history Musculoskeletal: reports: denies history Neurological: reports: denies history Endocrine/Immune: reports: Diabetes Other Conditions: reports: denies history - PRIOR SURGERIES/PROCEDURES Surgical/Procedure History: reports: none - IMMUNIZATION STATUS Childhood Immunizations: See Nurse Assessment Flu Vaccine: See Nurse Assessment - FAMILY HISTORY Family History: reviewed, not pertinent - SOCIAL HISTORY Smoking: non-smoker Substance Use: none/never Alcohol Use Frequency: never Living Situation: family <Hang Schwarz - Last Filed: 10/06/19 11:07> Physical Exam-General - PHYSICAL EXAM-ADULT Initial Vital Signs Reviewed: Yes - CONSTITUTIONAL General Appearance: appears well, alert, no apparent distress. negative: lethargic, obtunded, combative - EYES Eyes: PERRL/EOMI, pink conjunctivae - HEAD, EARS, NOSE, MOUTH & THROAT HENMT: normocephalic/atraumatic, moist mucous membranes - NECK Neck: non-tender, full range of motion, supple, normal inspection - RESPIRATORY Respiratory: chest non-tender, lungs clear, normal breath sounds - CARDIOVASCULAR Cardiovascular: normal peripheral pulses, regular rate, rhythm - GASTROINTESTINAL (ABDOMEN) Abdominal Exam: normal bowel sounds, soft, no organomegaly, no pulsatile mass, tenderness (epigastric to palp). negative: non tender, guarding, rigid - MUSCULOSKELETAL Back Exam: normal inspection Extremity: normal range of motion, non-tender, normal inspection Peripheral Pulses: radial (R): 2+, radial (L): 2+ - SKIN Integumentary: normal color, normal turgor, warm/dry - NEUROLOGIC Neurologic: grossly normal, no motor/sensory deficits - PSYCHIATRIC Psych/Mental Status: normal mood/affect, normal thought content, normal thought process, oriented x 3 <Hang Schwarz - Last Filed: 10/06/19 11:07> Progress - PLAN OF CARE/RESULTS Progress/Plan/Lab Results: Vital Signs - 8 hr 10/05/19 23:02 Temperature 98.2 F Pulse Rate 94 H Respiratory Rate 19 Blood Pressure 124/83 O2 Sat by Pulse Oximetry 100 Laboratory Results - last 24 hr 10/05/19 10/05/19 10/05/19 23:21 23:21 23:21 WBC 6.09 RBC 5.07 Hgb 14.1 Hct 42.6 MCV 84.0 MCH 27.8 MCHC 33.1 RDW Std Deviation 13.8 Plt Count 158 MPV 10.8 H Immature Gran % (Auto) 0.0 Neut % (Auto) 72.3 Lymph % (Auto) 18.7 L Pender % (Auto) 6.7 Eos % (Auto) 2.0 Baso % (Auto) 0.3 Immature Gran # (Auto) 0.00 Neut # (Auto) 4.40 Lymph # (Auto) 1.14 L Pender # (Auto) 0.41 Eos # (Auto) 0.12 Baso # (Auto) 0.02 Specimen Type VBG pH VBG pCO2 VBG pO2 VBG HCO3 VBG O2 Saturation VBG Base Excess VBG Lactate Sodium 139 Potassium 4.2 Chloride 100 Carbon Dioxide 29 Anion Gap 10 BUN 11 D Creatinine 0.9 Estimated GFR/1.73 m2 > 60 BUN/Creatinine Ratio 12 Glucose 305 H D Calculated Osmolality 288 Calcium 9.6 Total Bilirubin 0.41 AST 12 ALT 20 Alkaline Phosphatase 84 Total Protein 6.4 Albumin 4.0 Globulin 2.4 Albumin/Globulin Ratio 1.7 Amylase 16 L Lipase 13 Urine Source Urine Color Urine Turbidity Urine pH Ur Specific Spangler Urine Protein Ur Glucose (Stick) Ur Ketones (Stick) Urine Blood Urine Nitrite Urine Bilirubin Urobilinogen Dipstick Urine Leukocytes Urine WBC (Auto) Urine RBC (Auto) U Epithel Cells (Auto) Urine Bacteria (Auto) Acetone Level NEGATIVE 10/06/19 10/06/19 00:01 02:19 WBC RBC Hgb Hct MCV MCH MCHC RDW Std Deviation Plt Count MPV Immature Gran % (Auto) Neut % (Auto) Lymph % (Auto) Pender % (Auto) Eos % (Auto) Baso % (Auto) Immature Gran # (Auto) Neut # (Auto) Lymph # (Auto) Pender # (Auto) Eos # (Auto) Baso # (Auto) Specimen Type VENOUS VBG pH 7.21 L VBG pCO2 62 H VBG pO2 48 VBG HCO3 20.8 L VBG O2 Saturation 81.7 VBG Base Excess -4.5 L VBG Lactate 2.20 Sodium Potassium Chloride Carbon Dioxide Anion Gap BUN Creatinine Estimated GFR/1.73 m2 BUN/Creatinine Ratio Glucose Calculated Osmolality Calcium Total Bilirubin AST ALT Alkaline Phosphatase Total Protein Albumin Globulin Albumin/Globulin Ratio Amylase Lipase Urine Source CLEAN CATCH Urine Color YELLOW Urine Turbidity CLEAR Urine pH 6.0 Ur Specific Spangler 1.028 Urine Protein NEGATIVE Ur Glucose (Stick) >1000 A Ur Ketones (Stick) NEGATIVE Urine Blood NEGATIVE Urine Nitrite NEGATIVE Urine Bilirubin NEGATIVE Urobilinogen Dipstick NORMAL Urine Leukocytes NEGATIVE Urine WBC (Auto) <10 Urine RBC (Auto) <10 U Epithel Cells (Auto) <10 Urine Bacteria (Auto) NEGATIVE Acetone Level Orders Category Date Time Status NPO Diet 10/05/19 23:17 Active FLAT/UPRIGHT ABD/1 VIEW CHEST [RAD] Stat Exams 10/06/19 04:35 Ordered ACETONE SERUM [CHEM] Stat Lab 10/06/19 02:19 Completed AMYLASE [CHEM] Stat Lab 10/05/19 23:21 Completed CBC WITH ELECTRONIC DIFF [HEME] Stat Lab 10/05/19 23:21 Completed COMPREHENSIVE METABOLIC PANEL [CHEM] Stat Lab 10/05/19 23:21 Completed LIPASE [CHEM] Stat Lab 10/05/19 23:21 Completed URINALYSIS W/POSS RFLX CULT [URINALYSIS] Stat Lab 10/06/19 00:01 Completed VBG [VENOUS BLOOD GAS] [RESP] Routine Lab 10/06/19 02:19 Completed EKG [EKG] Stat Ther 10/06/19 00:36 Ordered Result Diagrams: 10/05/19 23:21 10/05/19 23:21 - REASSESSMENT Reassessment #1 Time Reassessed: 04:36 (Assumed care @ shift change. Old chart reviewed, pt seen, examined. He was admitted here on 10/02 for SBO, which resolved without surgery. Was Discharged on 10/04. Has had BM, has eaten. Began with sharp mid abd pain yest pm ~1700. Has been constant, waxed/waned since. On exam, NL BS, mild tender RUQ, Mod tender epigastric, zora-umbilical) - XRAY 1 XRAY Study: Abdomen Impression: Abnormal (mult AF levels) - CONSULTS/PCP/HOSPITALIST Notification #1 *Consult/PCP/Hospitalist*: [place] Time Discussed: 05:26 Reason/Comments: requests repeat CT Consult Disposition: Will see in ED, Admit <Maxim Bains - Last Filed: 10/06/19 05:26> - PLAN OF CARE/RESULTS Progress/Plan/Lab Results: Vital Signs - 8 hr 10/05/19 23:02 Temperature 98.2 F Pulse Rate 94 H Respiratory Rate 19 Blood Pressure 124/83 O2 Sat by Pulse Oximetry 100 Laboratory Results - last 24 hr 10/05/19 10/05/19 10/06/19 23:21 23:21 00:01 WBC 6.09 RBC 5.07 Hgb 14.1 Hct 42.6 MCV 84.0 MCH 27.8 MCHC 33.1 RDW Std Deviation 13.8 Plt Count 158 MPV 10.8 H Immature Gran % (Auto) 0.0 Neut % (Auto) 72.3 Lymph % (Auto) 18.7 L Pender % (Auto) 6.7 Eos % (Auto) 2.0 Baso % (Auto) 0.3 Immature Gran # (Auto) 0.00 Neut # (Auto) 4.40 Lymph # (Auto) 1.14 L Pender # (Auto) 0.41 Eos # (Auto) 0.12 Baso # (Auto) 0.02 Sodium 139 Potassium 4.2 Chloride 100 Carbon Dioxide 29 Anion Gap 10 BUN 11 D Creatinine 0.9 Estimated GFR/1.73 m2 > 60 BUN/Creatinine Ratio 12 Glucose 305 H D Calculated Osmolality 288 Calcium 9.6 Total Bilirubin 0.41 AST 12 ALT 20 Alkaline Phosphatase 84 Total Protein 6.4 Albumin 4.0 Globulin 2.4 Albumin/Globulin Ratio 1.7 Amylase 16 L Lipase 13 Urine Source CLEAN CATCH Urine Color YELLOW Urine Turbidity CLEAR Urine pH 6.0 Ur Specific Spangler 1.028 Urine Protein NEGATIVE Ur Glucose (Stick) >1000 A Ur Ketones (Stick) NEGATIVE Urine Blood NEGATIVE Urine Nitrite NEGATIVE Urine Bilirubin NEGATIVE Urobilinogen Dipstick NORMAL Urine Leukocytes NEGATIVE Urine WBC (Auto) <10 Urine RBC (Auto) <10 U Epithel Cells (Auto) <10 Urine Bacteria (Auto) NEGATIVE Orders Category Date Time Status NPO Diet 10/05/19 23:17 Active ACETONE SERUM [CHEM] Stat Lab 10/06/19 00:27 Uncollected AMYLASE [CHEM] Stat Lab 10/05/19 23:21 Completed CBC WITH ELECTRONIC DIFF [HEME] Stat Lab 10/05/19 23:21 Completed COMPREHENSIVE METABOLIC PANEL [CHEM] Stat Lab 10/05/19 23:21 Completed LIPASE [CHEM] Stat Lab 10/05/19 23:21 Completed URINALYSIS W/POSS RFLX CULT [URINALYSIS] Stat Lab 10/06/19 00:01 Completed VBG [VENOUS BLOOD GAS] [RESP] Stat Lab 10/06/19 00:27 Uncollected EKG [EKG] Stat Ther 10/06/19 00:36 Ordered Result Diagrams: 10/05/19 23:21 10/05/19 23:21 - CHANGE OF SHIFT REPORT (ED Provider) 1 Report Given and Care Transferred to:: Dr Bains at the end of shift Time of Transfer: 02:05 <Hang Schwarz - Last Filed: 10/06/19 11:07> Departure - Departure Date of Disposition Decision: 10/06/19 Time of Disposition Decision: 05:06 Certified Medical Emergency: Emergent - Critical Care Note This patient required my direct & personal management of CC.: No <Maxim Bains - Last Filed: 10/06/19 05:26> <Hang Schwarz - Last Filed: 10/06/19 11:07> - Departure DIAGNOSIS: Small bowel obstruction Disposition: ADMITTED INPATIENT 09 Condition: Stable Attestation - Physician/ ДМИТРИЙ Attestation Patient care was provided by Advanced Practice Provider:: No The physician spent face to face time with patient:: Yes Advanced Practice Provider documentation review:: Supervising physician onsite and consulted in the evaluation and care of this patient. The physician did have a face to face encounter with the patient. <Maxim Bains - Last Filed: 10/06/19 05:26> - Physician/ ДМИТРИЙ Attestation Patient care was provided by Advanced Practice Provider:: No The physician spent face to face time with patient:: Yes Advanced Practice Provider documentation review:: Supervising physician onsite and consulted in the evaluation and care of this patient. The physician did have a face to face encounter with the patient. <Hang Schwarz - Last Filed: 10/06/19 11:07> This chart was documented by the indicated scribe, (Renee Goncalves Scribe) and accurately reflects the services I performed and decisions made by me, Hang Schwarz MD, as attested by the provider's signature.
[2019-10-06] MEDS: TYLENOL PO PRN (15:27)
[2019-10-06] MEDS ORDERED: PROTONIX IV SCH (19:30)
[2019-10-06] MEDS ORDERED: SODIUM CHLORIDE 0.9% INJ SCH (19:30)
--- NOTE | 2019-10-06 22:28 | PROGRESS NOTE ---
DATE: 10/06/2019 SUBJECTIVE: The patient is still having pain. He is passing some flatus, he says, but still no bowel movement. OBJECTIVE: Blood pressure is 127/79, heart rate 78, respiratory rate 18, temperature 98.3 degrees.Cardiovascular: Regular rate and rhythm. Pulmonary: Bilateral breath sounds, clear to auscultation. GI: Soft, nontender, nondistended. Bowel sounds are positive. LABORATORY DATA: PH 7.21, pCO2 is 62. ASSESSMENT AND PLAN: 1. Partial small-bowel obstruction. He does not have a nasogastric tube. We are just going to continue to monitor him. He had a surgical consult, but it has not been completed. We will repeat plain films tomorrow and follow. 2. Diabetes. Continue to monitor his blood sugars and follow. cc: King Ann MD
--- NOTE | 2019-10-06 23:30 | GENERAL SURGERY CONSULTATION ---
DATE: 10/06/2019 REQUESTING PHYSICIAN: Hospitalist. REASON FOR CONSULTATION: Bowel obstruction. HISTORY OF PRESENT ILLNESS: A 44-year-old gentleman who was recently in the hospital two days prior with a bowel obstruction, presenting now with right upper quadrant discomfort last night. He comes in stating he has been sick to his stomach, but no vomiting. He has had some issues with loose stool. He describes the pain as dull and achy in the right upper quadrant, and comes and goes. He was seen previously and improved clinically, but came back with almost similar symptoms. He did have a CT scan that showed improvement overall. I was asked to weigh an opinion. He is feeling a little bit better since he has been admitted. PAST MEDICAL HISTORY: Includes diabetes mellitus type 2. PAST SURGICAL HISTORY: None. ALLERGIES: None. HOME MEDICATIONS: MAR reviewed. SOCIAL HISTORY: No alcohol, tobacco, or illicit drugs. FAMILY HISTORY: Reviewed with patient and noncontributory. REVIEW OF SYSTEMS: A full 14 systems reviewed and negative, except as specified in HPI. PHYSICAL EXAMINATION: Vital Signs: Patient is currently afebrile. His vital signs are stable. General: No acute distress. HEENT: Normocephalic, atraumatic. Pupils equal, round, reactive to light. Mucous membranes moist. Oropharynx benign. Neck: Supple. Trachea midline. Cardiovascular: Regular rate and rhythm. Lungs: Grossly clear. Abdomen: Soft, protuberant. No real peritoneal signs. No real tenderness. Extremities: Moves all extremities. Neurologic: Grossly intact. Skin: No signs of jaundice. Vascular: All extremities perfused. LABORATORY: Reviewed. ASSESSMENT AND PLAN: A 44-year-old with bowel obstruction. Bowel obstruction: At this time, clinically seems to be improving, but I suspect he might potentially have some underlying inflammatory bowel disease. I do think once he is improved from this episode, we need to consider an EGD and colonoscopy to rule out something like Crohn's. Otherwise, we will continue conservative management on him today. I do not see an obvious point or transition point to merit surgical intervention, but we will continue to monitor. cc: Rome Wilson MD
[2019-10-07] MEDS: HUMALOG SUBQ SCH ×4 (06:54→22:01)
[2019-10-07 07:08] LABS: BASO# 0.03 X1000 (0.0-0.2); BASO% 0.6 % (0.0-0.8); EOS% 2.1 % (0.0-10.0); HEMATOCRIT 42.9 % (42.0-52.0); HEMOGLOBIN 14.4 g/dL (14.0-18.0); LYMPH# 1.21 X1000 (1.2-3.4); LYMPH% 24.9 % (20.5-51.1); MCH 28.2 PG (27-31); MCHC 33.6 g/dL (33-37); MONO# 0.34 X1000 (0.11-0.59); MPV 10.9 FL (7.4-10.4); NEUT# 3.18 X1000 (1.4-6.5); NEUT% 65.4 % (42.2-75.2); PLT 160 X1000 (130-400); RBC 5.11 XMIL (4.7-6.1); RDW 13.5 % (11.5-14.5); WBC 4.86 X1000 (4.8-10.8)
[2019-10-07 07:47] LABS: AGAP 13; ALB/GLOB RATIO 1.7; ALBUMIN 3.9 g/dL (3.5-5.0); ALKALINE PHOSPHATASE 83 U/L (32-122); BUN 8 mg/dL (8-22); CHLORIDE 102 mmol/L (98-107); COSMO 278; CREATININE 0.5 mg/dL (0.7-1.2); ESTIMATED GFR > 60; GLUCOSE 144 mg/dL (70-104); GOT 13 U/L (10-34); GPT 20 U/L (10-44); MAGNESIUM 1.8 mg/dL (1.5-2.7); POTASSIUM 3.9 mmol/L (3.5-5.1); SODIUM 139 mmol/L (136-145); TCO2 24 mmol/L (25-35); TOTAL BILIRUBIN 0.69 mg/dL (0.20-1.00); TOTAL PROTEIN 6.2 g/dL (6.3-8.3)
[2019-10-07] MEDS: LANTUS INSULIN SUBQ SCH (08:45)
[2019-10-07] MEDS: LOVENOX SUBQ SCH (08:45)
--- NOTE | 2019-10-07 08:45 | Diag Imaging Result Doc PS360 ---
EXAM: ABDOMEN FLAT/UPRIGHT INDICATION: sbo TECHNIQUE: 2 views COMPARISON: 10/06/2019 FINDINGS: There has been marked improvement of the gaseous distention of small bowel seen on the previous study. There is a now only minimal patchy small bowel gas with little distention identified. There is retained contrast media in the colon related to a previous CT. Otherwise, the abdomen is stable. IMPRESSION: Marked improvement of gaseous distention of small bowel seen on the previous study. Electronically signed by Bharath Goncalves 10/07/2019 8:42 AM
--- NOTE | 2019-10-07 12:22 | GENERAL SURGERY PROGRESS NOTE ---
DATE: 10/07/2019 SUBJECTIVE: The patient seems to be doing okay. He is a little sick to his stomach. OBJECTIVE: Vital Signs: The patient is currently afebrile. His vital signs are stable. General: No acute distress. HEENT: Normocephalic, atraumatic. Pupils equal, round, and reactive to light. Mucous membranes moist. Oropharynx benign. Neck: Supple. Trachea midline. Cardiovascular: Regular rate and rhythm. Lungs: Grossly clear. Abdomen: Soft, some distention, but nontender. Extremities: Moves all extremities. Neurologic: Grossly intact. Skin: No signs of jaundice. Vascular: All extremities perfused. LABORATORY DATA: None this morning as of yet. IMAGING: Pending. ASSESSMENT AND PLAN: A 44-year-old gentleman with bowel obstruction. Bowel obstruction. At this time, will follow up with an abdominal film. If it shows some improvement, may consider liquids. If not, may need to consider small bowel series. We will continue to follow while he is in the hospital. cc: Rome Wilson MD
[2019-10-07] MEDS: TYLENOL PO PRN (14:25)
--- NOTE | 2019-10-07 19:08 | PROGRESS NOTE ---
DATE: 10/07/2019 SUBJECTIVE: Patient has no major complaints. OBJECTIVE: Vital signs: Blood pressure is 116/78, heart rate 71, respiratory rate 18, temperature 98.2 degrees. Cardiovascular: Regular rate and rhythm. Pulmonary: Bilateral breath sounds. Clear to auscultation. GI: Soft, nontender, nondistended. Bowel sounds are positive. Extremities: No clubbing or cyanosis. Lymphatic: No peripheral edema. LABORATORY DATA: Really I think is unremarkable. PROBLEM LIST: 1. Partial small bowel obstruction. I am going to go ahead and advance his diet. He seems to be doing better. There is a putative etiology that this may be related to Crohn's, so he will need some sort of endoscopy. I have consulted Dr. Clark. I have not seen his note yet, and this certainly could be potentially done as an outpatient as well if he is asymptomatic. 2. Type 2 diabetes. We will continue insulin. He is on sliding scale and scheduled medications. 3. If he continues to improve, advance diet, and may be home in the next 1 to 2 days. cc: King Ann MD
--- NOTE | 2019-10-07 21:15 | GASTROENTEROLOGY CONSULTATION ---
DATE: 10/07/2019 REASON FOR CONSULTATION: Abdominal pain. HISTORY OF PRESENT ILLNESS: This is a 44-year-old, male, who was just recently in the hospital for a partial small bowel obstruction. He had been followed by [facility]. His symptoms had improved and he was discharged on Saturday. Patient states on Saturday, he ate an [employer] roast beef sandwich and some curly fries. Yesterday when he woke up, he had abdominal pain. He did have a bowel movement and states the pain improved some after the bowel movement. He felt sick to his stomach, but denied vomiting. Currently, he denies abdominal pain. PAST MEDICAL HISTORY: Diabetes. PAST SURGICAL HISTORY: None reported. ALLERGIES: No known drug allergies. MEDICATION: Excedrin Migraine as needed, insulin NovoLog as directed, insulin Lantus as directed. SOCIAL HISTORY: He lives with his mother. No alcohol or tobacco use. He works at [employer]. REVIEW OF SYSTEMS: Per history of present illness. PHYSICAL EXAMINATION: Vital Signs: Temperature 98.2 degrees, pulse 71, respirations 18, blood pressure 116/78. General: Patient is awake and alert, in no acute distress. HEENT: Normocephalic, atraumatic. Pupils equal, round, reactive to light. Sclerae nonicteric. Respiratory: Lung sounds clear. Cardiovascular: Regular rate and rhythm. Abdomen: Soft, nontender. Positive bowel sounds. Extremities: No lower extremity edema noted. DIAGNOSTIC RESULTS: Laboratory: WBC 4.86, hemoglobin 14.4, hematocrit 42.9, platelet 160,000. Chemistry, sodium 139, potassium 3.9, chloride 102, CO2 of 24, BUN 8, creatinine 0.5, glucose 144. Total bilirubin 0.69, AST 13, ALT 20, alkaline phosphatase 83, amylase 16, lipase 13. Imaging studies: Abdominal and pelvis CT scan on 10/06/2019, showed interval improvement of the distention of the small bowel seen on previous study. Otherwise, abdomen and pelvis are stable. Abdominal x-ray today showed marked improvement of gaseous distention of the small bowel seen on the previous study. ASSESSMENT: 1. Abdominal pain. 2. History of partial small bowel obstruction. Patient has been seen by [facility]. There are continuing to follow. Considering workup for Crohn's disease. 3. Type 2 diabetes. PLAN: Patient's symptoms have improved. He is not complaining of abdominal pain at this time. Imaging study shows improvement. We will continue to follow. I believe they are allowing him to have sips of chips and water. Hopefully, he can have slow advancement of his diet hopefully to clear liquids maybe tomorrow after evaluation by [facility]. As far as GI is concerned, recommend patient make an appointment with us as an outpatient for workup for endoscopy. Would not recommend urgent endoscopy at this point. I will give him contact information to call and make an office visit appointment is set up endoscopy as an outpatient, but we will continue to follow during this hospital course and further plans to be made according to his progress. I have discussed this case with Dr. Clark. Thank you for this consultation. Dictated by DYLAN Cabrales for Gagan Clark MD cc: DYLAN Oro MD
[2019-10-08 06:32] LABS: BASO# 0.03 X1000 (0.0-0.2); BASO% 0.7 % (0.0-0.8); EOS# 0.11 X1000 (0.0-0.7); EOS% 2.5 % (0.0-10.0); HEMATOCRIT 44.7 % (42.0-52.0); HEMOGLOBIN 14.9 g/dL (14.0-18.0); LYMPH# 1.21 X1000 (1.2-3.4); LYMPH% 27.9 % (20.5-51.1); MCH 27.9 PG (27-31); MCHC 33.3 g/dL (33-37); MCV 83.7 FL (81-99); MONO# 0.35 X1000 (0.11-0.59); MONO% 8.1 % (1.7-9.3); MPV 10.6 FL (7.4-10.4); NEUT# 2.63 X1000 (1.4-6.5); NEUT% 60.8 % (42.2-75.2); PLT 172 X1000 (130-400); RBC 5.34 XMIL (4.7-6.1); RDW 13.6 % (11.5-14.5); WBC 4.33 X1000 (4.8-10.8)
[2019-10-08] MEDS ORDERED: PRILOSEC PO SCH (07:00)
[2019-10-08 07:02] LABS: AGAP 12; BUN 8 mg/dL (8-22); CALCIUM 9.1 mg/dL (8.8-10.2); CHLORIDE 101 mmol/L (98-107); COSMO 278; CREATININE 0.8 mg/dL (0.7-1.2); ESTIMATED GFR > 60; GLUCOSE 136 mg/dL (70-104); SODIUM 139 mmol/L (136-145); TCO2 26 mmol/L (25-35)
[2019-10-08] MEDS: LOVENOX SUBQ SCH (08:59)
[2019-10-08] MEDS: LANTUS INSULIN SUBQ SCH (09:01)
[2019-10-08] MEDS: HUMALOG SUBQ SCH (12:05)
--- NOTE | 2019-10-08 12:28 | GENERAL SURGERY PROGRESS NOTE ---
DATE: 10/08/2019 SUBJECTIVE: The patient seems to be doing okay. He has had a bowel movement. He seems to be tolerating his diet. OBJECTIVE: Vital Signs: The patient is currently afebrile. His vital signs are stable. General: No acute distress. HEENT: Normocephalic, atraumatic. Pupils equal, round, reactive to light. Mucous membranes moist. Oropharynx benign. Neck: Supple. Trachea midline. Cardiovascular: Regular rate and rhythm. Lungs: Grossly clear. Abdomen: Soft, nontender, somewhat distended. Bowel sounds auscultated. Extremities: Moves all extremities. Neurologic: Grossly intact. Skin: No signs of jaundice. Vascular: All extremities perfused. LABORATORY DATA: None this morning. ASSESSMENT AND PLAN: A 44-year-old gentleman with a small-bowel obstruction. Small-bowel obstruction. At this time, he is making some improvements. Will advance him to a full liquid diet to see how he does. I do think he is going to require outpatient endoscopic procedures to evaluate and rule out something like Crohn's. Will continue to monitor him while he is in the hospital. cc: Rome Wilson MD
[2019-10-08 15:28] VITALS: BP 122/78
--- NOTE | 2019-10-08 20:43 | GASTROENTEROLOGY PROGRESS NOTE ---
DATE: 10/08/2019 SUBJECTIVE: Patient is awake and alert. He states he is feeling better. He has had a bowel movement this morning. He has tolerated a full liquid diet for breakfast. No reported abdominal pain. OBJECTIVE: Vital Signs: Temperature 97.8 degrees, pulse 75, respirations 16, blood pressure 120/77. General: Patient is awake and alert in no acute distress.Abdomen: Soft, nontender. He has tolerated a full liquid diet for breakfast. LABORATORY: Hematology: WBC 4.33, hemoglobin 14.9, hematocrit 44.7, MCV 83.7, platelets 172,000. Chemistry: Sodium 139, potassium 4.0, chloride 101, CO2 26, BUN 8, creatinine 0.8, glucose 136, calcium 9.1. ASSESSMENT AND PLAN: Small bowel obstruction, improving. Patient has tolerated a full liquid diet. He denies abdominal pain now. We will most likely do endoscopy as an outpatient since his symptoms are currently improving. I will recommend he follow up with us in the office, and we can set the procedures up as an outpatient. We will continue to follow during this hospital course, but his symptoms have improved, and he is currently tolerating a full liquid diet. I have discussed this case with Dr. Clark. Dictated by DYLAN Cabrales for Gagan Clark MD cc: DYLAN Oro MD
--- NOTE | 2019-10-09 18:32 | DISCHARGE SUMMARY ---
ADMISSION DATE: 10/06/2019 DISCHARGE DATE: 10/08/2019 DISCHARGE DIAGNOSES: 1. Partial small bowel obstruction. 2. Diabetes mellitus type 2. DIAGNOSTICS: 1. Abdominal x-ray revealed partial small bowel obstruction and/or enteritis. 2. CT of the abdomen and pelvis: Interval improvement of distention of the small bowel. Otherwise, abdomen and pelvis are essentially stable. 3. 10/07/2019 flat and upright revealed marked improvement of gaseous distention of small bowel. CONSULTANTS: 1. Gagan Clark MD 2. Rome Wilson MD HOSPITAL COURSE: Mr. Campo presented to the emergency room complaining of right upper quadrant pain. He was found to have a partial small bowel obstruction for which he was initially held n.p.o. Diet has been advanced, and he has tolerated well. Bowel obstruction is cleared per x- ray. He has had a bowel movement and thankfully he is ready for discharge. There was a consideration of Crohn disease. It has been recommended that he will be worked up on an outpatient basis, and he will need to follow up with Dr. Clark for this. DISCHARGE PHYSICAL EXAMINATION: Vital Signs: Blood pressure is 122/78 with heart rate of 82, respirations 18, temperature is 97.9 degrees oral with room air saturations 96% to 98%. Cardiovascular: Regular rate and rhythm. S1 and S2 appreciated. He has no lower extremity edema. Peripheral pulses are palpable x4 extremities. Pulmonary: Breath sounds are clear with no increased work of breathing noted. Chest rises and falls symmetric with respiration. Gastrointestinal: Abdomen is soft, nontender, nondistended with bowel sounds in all 4 quadrants. Neurologic: He is alert and oriented x3. DISCHARGE MEDICATIONS: 1. NovoLog with FlexPen as directed. 2. Lantus 20 units at bedtime. FOLLOWUP: 1. Dr. Clark. He needs to call to make an appointment to be seen within a week. 2. Dr. Rome Wilson as directed. 3. He has been instructed to call to be seen sooner or return to the emergency room for any syncope, dizziness, any chest pain, palpitations, temperature greater than 103, any nausea, vomiting, diarrhea, constipation, shortness of breath, any black or bloody vomitus or stools or for any questions or concerns that he may have. DISPOSITION: He is being discharged home in stable condition with family members. This is a greater than 30-minute discharge. Dictated by DYLAN Yadav for Zack Cruz MD Addendum: Patient seen and examined by myself. Agree with DYLAN note. It reflects my assessment and plan. Patient is being discharged in stable condition to home. Follow up with PCP in a week. cc: DYLAN Yadav MD [facility]
== END 2019-10-08 16:28 | disposition home or self-care (01) | DRG 390 ==
LOC: ED 23:01 → 4N 10-06 07:28 → SUATTDRO 10-06 07:28
PROVIDERS: ATTEND Internal Medicine